=== PATIENT | female | born 1980 | race Caucasian/White ===

== ENCOUNTER 2016-08-25 18:16 | Emergency (ER) | payer OTHER ==
--- NOTE | 2016-08-25 18:33 | ED.PDOC ---
History of Present Illness - General Chief Complaint: Laceration Stated Complaint: laceration Time Seen by Provider: 08/25/16 18:25 Source: patient Exam Limitations: no limitations - History of Present Illness Initial Comments: Patient was cutting an onion and she cut the distal end of her left thumb. It bled quite a bit at first but has since stopped. She says it hurts a little and that it is also a "little numb" around the wound. She is not up to date on her tetanus. No other complaints. Timing/Duration: 1-3 hours Severity: mild Improving Factors: nothing Worsening Factors: nothing Associated Symptoms: denies symptoms Allergies/Adverse Reactions: Allergies NO KNOWN ALLERGY Allergy (Verified 08/25/16 18:34) Review of Systems - Review of Systems Constitutional: States: no symptoms reported EENTM: States: no symptoms reported Respiratory: States: no symptoms reported Cardiology: States: no symptoms reported Gastrointestinal/Abdominal: States: no symptoms reported Genitourinary: States: no symptoms reported Musculoskeletal: States: no symptoms reported Skin: States: see HPI Neurological: States: no symptoms reported Endocrine: States: no symptoms reported Hematologic/Lymphatic: States: no symptoms reported Family Medical History - Family History Mother Family History: Unknown Physical Exam - Physical Exam General Appearance: Alert Respiratory: lungs clear Cardiovascular/Chest: regular rate, rhythm Gastrointestinal/Abdominal: normal bowel sounds, non tender, soft Skin Exam: other - 1.5 cm transverse laceration on distal anterior first digit. Hemostatic. Wound edges have self-approximated. Progress - Progress Progress: 08/25/16 19:00 Wound cleaned and irrigated with normal saline. Steri-strips applied. Tetanus booster given. Departure - Departure Clinical Impression: Laceration Disposition: Discharge to Home or Self Care Condition: Good Departure Forms: ED Discharge - Pt. Copy, Patient Portal Self Enrollment Diet: resume usual diet Activity: increase activity as tolerated Additional Instructions: Change bandage once per day. Apply topical antibiotic to the wound site until healed. Return to the ER or the clinic if bleeding recurs or for pus, increasing pain or redness, or failure of wound to heal.
[2016-08-25] MEDS ORDERED: TETANUS,DIPHTHERIA,PERTUSSIS 1 EA SYG IM ONE (18:38)
[2016-08-25 19:16] VITALS: BP 136/79; TEMP 97.9; O2SAT 98
== END 2016-08-25 19:16 | disposition home or self-care (01) ==
LOC: ER 18:16
DX: S61.012A Laceration without foreign body of left thumb without damage to nail, initial encounter (principal); Z23 Encounter for immunization; W26.0XXA Contact with knife, initial encounter; Y93.G1 Activity, food preparation and clean up

== ENCOUNTER 2019-05-30 07:51 | Day surgery (SDC) | payer OTHER ==
[2019-05-30] MEDS ORDERED: ONDANSETRON INJ 4 MG/2 ML VIAL IV ONE (08:06)
[2019-05-30] MEDS ORDERED: MORPHINE SULFATE INJ 10 MG/ML VIAL IV ONE ×2 (08:06→10:13)
[2019-05-30] MEDS ORDERED: SODIUM CHLORIDE 0.9% 1000ML 1,000 ML IVS ONE (08:06)
[2019-05-30] MEDS ORDERED: SODIUM CHLORIDE 0.9% (FLUSH) 10 ML SYG IV PRN (08:07)
[2019-05-30] MEDS ORDERED: CEFEPIME 2 GM in SODIUM CHL 0.9% 50ML MIN-BAG+ 50 ML IVPB ONE (08:09)
--- NOTE | 2019-05-30 08:12 | ED.PDOC ---
History of Present Illness - General Chief Complaint: Abdominal Pain Stated Complaint: abdominal pain Time Seen by Provider: 05/30/19 07:59 Information Source: patient Exam Limitations: no limitations - History of Present Illness Initial Comments: 38 yo F who presents for abd pain. States sx started in her lower back two days ago, was seen at PCP, UA was neg, pain worsened today, is diffuse, severe, no radiation, constant. Denies associated sx. Denies cough, congestion, CP, SOB, n/v/d, urinary sx, weakness, numbness, constipation. Review of Systems - Review of Systems Constitutional: Denies: chills EENTM: Denies: blurred vision, double vision, ear pain, nose congestion, throat pain Respiratory: Denies: cough, short of breath Cardiology: Denies: chest pain, edema, palpitations, syncope Gastrointestinal/Abdominal: States: abdominal pain. Denies: constipation, diarrhea, nausea, vomiting Genitourinary: Denies: dysuria, frequency, hematuria Musculoskeletal: States: back pain. Denies: neck pain Skin: Denies: lesions, rash Neurological: Denies: headache, numbness, weakness Past Medical History (General) - Patient Medical History Hx Stroke: No Hx Asthma: No Hx Congestive Heart Failure: No Hx Diabetes: No - Vaccination History Hx Tetanus, Diphtheria Vaccination: No Hx Influenza Vaccination: Yes - 05/29/19 - Social History Hx Tobacco Use: Yes Hx Alcohol Use: No Hx Substance Use: No Hx Substance Use Treatment: No Hx Depression: No - Female History Patient is a Female of Child Bearing Age (10 -59 yrs old): Yes Patient : No Family Medical History - Family History Mother Family History: Unknown Physical Exam - Physical Exam General Appearance: Alert, No apparent distress, Well Developed, Well Nourished, Other - Appears in pain Eyes, Ears, Nose, Throat Exam: PERRL/EOMI, normal ENT inspection Neck: non-tender, full range of motion, supple Respiratory: chest non-tender, lungs clear, normal breath sounds, no respiratory distress, no accessory muscle use Cardiovascular/Chest: normal peripheral pulses, no edema, no gallop, no JVD, no murmur, tachycardia Peripheral Pulses: No deficit Gastrointestinal/Abdominal: soft, no organomegaly, no pulsatile mass, guarding, tenderness, other - No distention Back Exam: normal inspection, no CVA tenderness, no vertebral tenderness Extremity: normal range of motion, non-tender, normal inspection, no pedal edema, no calf tenderness, normal capillary refill Neurologic: no motor/sensory deficits, alert Skin Exam: normal color, warm/dry Progress - Progress Progress: Sepsis activated as pt had two SIRS criteria with concern for infection. Pt found to have acute cholecystitis, suspect localized infection, lactate wnl, pt still in pain despite 4mg IV morphine x2 doses, fentanyl ordered. Discussed with Dr. Hong, surgery, will consult and take pt to the OR, requests admission for hospitalist. Discussed with Joey Kwong, midlevel for hospitalist, accepts for admission. Haley Red MD Emergency Physician Billing #[id number] - Results/Orders Results/Orders: Laboratory Results - last 24 hr 05/30/19 05/30/19 05/30/19 08:20 08:22 08:22 WBC 13.8 H RBC 4.59 Hgb 14.2 Hct 42.2 MCV 92.1 MCH 30.9 MCHC 33.6 RDW 12.8 Plt Count 268 MPV 7.3 L Absolute Neuts (auto) 12.50 H Absolute Lymphs (auto) 0.60 L Absolute Monos (auto) 0.70 Absolute Eos (auto) 0.00 Absolute Basos (auto) 0.00 Neutrophils % 90.4 H Lymphocytes % 4.7 L Monocytes % 4.7 Eosinophils % 0.0 L Basophils % 0.2 Sodium 136 Potassium 3.4 L Chloride 101 Carbon Dioxide 27 Anion Gap 11.4 L BUN 10 Creatinine 0.72 BUN/Creatinine Ratio 13.9 Random Glucose 124 H Serum Osmolality 272.4 L Lactic Acid Calcium 9.5 Total Bilirubin 0.9 AST 19 ALT 15 Alkaline Phosphatase 76 Serum Total Protein 7.9 Albumin 4.2 Globulin 3.7 H Albumin/Globulin Ratio 1.1 Lipase Urine Color Yellow Urine Appearance Clear Urine pH 7.5 Ur Specific Lapel 1.015 Urine Protein Negative Urine Glucose (UA) Negative Urine Ketones Negative Urine Blood Trace-intact H Urine Nitrite Negative Urine Bilirubin Negative Urine Urobilinogen 0.2 Ur Leukocyte Esterase Small H Urine RBC 1-3 Urine WBC 0-1 Ur Epithelial Cells 1-3 Amorphous Sediment Trace Urine Bacteria Rare Urine HCG, Qual 05/30/19 05/30/19 05/30/19 08:22 08:56 10:00 WBC RBC Hgb Hct MCV MCH MCHC RDW Plt Count MPV Absolute Neuts (auto) Absolute Lymphs (auto) Absolute Monos (auto) Absolute Eos (auto) Absolute Basos (auto) Neutrophils % Lymphocytes % Monocytes % Eosinophils % Basophils % Sodium Potassium Chloride Carbon Dioxide Anion Gap BUN Creatinine BUN/Creatinine Ratio Random Glucose Serum Osmolality Lactic Acid 0.9 Calcium Total Bilirubin AST ALT Alkaline Phosphatase Serum Total Protein Albumin Globulin Albumin/Globulin Ratio Lipase 26 Urine Color Urine Appearance Urine pH Ur Specific Lapel Urine Protein Urine Glucose (UA) Urine Ketones Urine Blood Urine Nitrite Urine Bilirubin Urine Urobilinogen Ur Leukocyte Esterase Urine RBC Urine WBC Ur Epithelial Cells Amorphous Sediment Urine Bacteria Urine HCG, Qual Negative CT abd/pelvis: EXAM DESCRIPTION: Abdomen/Pelvis w/Contrast CLINICAL HISTORY: 38 years Female, pain TECHNIQUE: This exam was performed according to our departmental dose-opti mization program, which includes automated exposure control, adjustment of the mA and/or kV according to patient size and/or use of iterative reconstruction technique. COMPARISON: None at time of initial interpretation. FINDINGS: Visualized lung bases are grossly unremarkable. The liver measures at least 20 cm. No suspicious hepatic lesion. Mild intrahepatic and extrahepatic biliary dilatation. The portal vein is patent. The gallbladder is distended with gallbladder wall thickening and pericholecystic fluid. The spleen, pancreas and adrenal glands are unremarkable. Normal kidneys. No hydronephrosis. No urolithiasis. Unremarkable bladder. No adnexal mass. Scattered colonic diverticula without focal inflammatory change. No evidence of bowel obstruction. No findings to suggest appendicitis. No adenopathy. No focal fluid collection. No free air. Normal caliber abdominal aorta. No acute or suspicious osseous abnormality. IMPRESSION: Acute cholecystitis. Electronically signed by: Jamel Hardin MD 05/30/2019 9:50 AM [employer] TECHNOLOGIST Vital Signs - 24 hr 05/30/19 05/30/19 05/30/19 08:00 09:03 10:06 Temperature 100.2 F H Pulse Rate [ 121 H 80 86 Left Brachial] Respiratory 16 16 20 Rate Blood Pressure 136/94 122/70 127/84 [Left Arm] O2 Sat by Pulse 99 95 98 Oximetry Departure - Departure Clinical Impression: Acute cholecystitis Time of Disposition: 11:14 Disposition: Admit Patient Condition: Fair Home Medications: Ambulatory Orders Modafinil 200 mg PO BID 05/30/19 Norethin Acet & Estrad-Fe [Taytulla 1-20 mg-Mcg(24)] 1 cap PO DAILY 05/30/19
[2019-05-30] MEDS ORDERED: SODIUM CHL 0.9% 50ML MIN-BAG+ 50 ML IVPB ONE (08:23)
[2019-05-30] MEDS ORDERED: CEFEPIME 2 GM VIAL ONE (08:23)
--- NOTE | 2019-05-30 09:51 | CT ---
EXAM DESCRIPTION: Abdomen/Pelvis w/Contrast CLINICAL HISTORY: 38 years Female, pain TECHNIQUE: This exam was performed according to our departmental dose-optimization program, which includes automated exposure control, adjustment of the mA and/or kV according to patient size and/or use of iterative reconstruction technique. COMPARISON: None at time of initial interpretation. FINDINGS: Visualized lung bases are grossly unremarkable. The liver measures at least 20 cm. No suspicious hepatic lesion. Mild intrahepatic and extrahepatic biliary dilatation. The portal vein is patent. The gallbladder is distended with gallbladder wall thickening and pericholecystic fluid. The spleen, pancreas and adrenal glands are unremarkable. Normal kidneys. No hydronephrosis. No urolithiasis. Unremarkable bladder. No adnexal mass. Scattered colonic diverticula without focal inflammatory change. No evidence of bowel obstruction. No findings to suggest appendicitis. No adenopathy. No focal fluid collection. No free air. Normal caliber abdominal aorta. No acute or suspicious osseous abnormality. IMPRESSION: Acute cholecystitis. Electronically signed by: Jamel Hardin MD 05/30/2019 9:50 AM [facility]
[2019-05-30] MEDS ORDERED: fentaNYL CITRATE INJ 50 MCG/ML AMP IV ONE (11:07)
[2019-05-30] MEDS ORDERED: PROPOFOL 200 MG/20 ML VIAL IV ONE (12:00)
[2019-05-30] MEDS ORDERED: MAGNESIUM SULFATE INJ 1 GM/2 ML VIAL IVPB ONE (12:00)
[2019-05-30] MEDS ORDERED: DEXAMETHASONE INJ 10 MG/ML VIAL IV ONE (12:00)
[2019-05-30] MEDS ORDERED: raNITIdine HCL INJ 25 MG/ML VIAL IV ONE (12:00)
[2019-05-30] MEDS ORDERED: LIDOCAINE 1% 10 ML VIAL INJ ONE (12:00)
[2019-05-30] MEDS ORDERED: KETOROLAC TROMETHAMINE INJ 30 MG/ML VIAL IV ONE (12:00)
[2019-05-30] MEDS ORDERED: SODIUM CHLORIDE 0.9% 50 ML VIAL INJ ONE (12:00)
[2019-05-30] MEDS ORDERED: KETAMINE HCL 100 MG/ML VIAL ONE (12:33)
[2019-05-30] MEDS ORDERED: ROCURONIUM BROMIDE 10 MG/ML VIAL ONE (12:33)
[2019-05-30] MEDS ORDERED: MIDAZOLAM INJ 2 MG/2 ML VIAL ONE (12:33)
[2019-05-30] MEDS ORDERED: HYDROmorphone HCL INJ 2 MG/ML VIAL ONE (12:33)
[2019-05-30] MEDS ORDERED: BUPIVACAINE 0.25% W/EPI 50 ML VIAL INJ ONE (12:40)
[2019-05-30] MEDS ORDERED: HEPARIN SODIUM (PORCINE) 10,000 UNITS/ML VIAL ONE (12:41)
[2019-05-30] MEDS ORDERED: LACTATED RINGERS 1,000 ML ONE (12:47)
[2019-05-30] MEDS ORDERED: IOPROMIDE INJ 300 MG/ML 50 ML INJ ONE (12:59)
[2019-05-30] MEDS ORDERED: HEPARIN SODIUM (PORCINE) 10,000 UNITS/ML VIAL IRRIG ONE (12:59)
[2019-05-30] MEDS ORDERED: BUPIVACAINE 0.25% W/EPI 50 ML VIAL SUBCU ONE (12:59)
[2019-05-30] MEDS ORDERED: SUGAMMADEX SODIUM 200 MG/2 ML VIAL IV ONE (13:50)
[2019-05-30] MEDS ORDERED: ELECTROLYTE-A 1,000 ML IVS ONE (14:01)
--- NOTE | 2019-05-30 15:06 | RAD ---
Intraoperative views from a cholangiogram. Indication: IOL Impression: Fluoroscopic image/s were acquired by the referring physician intraoperatively. Please refer to surgical report for specific details. Fluoroscopy time 11.6 seconds. Images submitted 3 Electronically signed by: Benny Bowling MD 05/30/2019 3:04 PM ROD FILLER
[2019-05-30] MEDS ORDERED: LACTATED RINGERS 1,000 ML IVS ONE (15:14)
[2019-05-30 16:42] VITALS: BP 106/67; TEMP 96.8; O2SAT 95
--- NOTE | 2019-05-31 10:34 | OP ---
DATE OF PROCEDURE: 05/30/19 PREOPERATIVE DIAGNOSIS: 1. Acute cholecystitis. 2. Right upper quadrant pain. POSTOPERATIVE DIAGNOSIS: 1. Acute cholecystitis. 2. Right upper quadrant pain. 3. Cholelithiasis. PROCEDURE: 1. Laparoscopic cholecystectomy with intraoperative cholangiography using fluoroscopy. SURGEON: Jose Hong MD. CAR RENTAL MANAGER: None. ANESTHESIA: Local infiltration of 0.25% Marcaine with epinephrine and general endotracheal anesthesia. INDICATION: The patient is a 39-year-old female who after eating [place] food Wednesday evening developed discomfort. The pain worsened. She states it involves her whole abdomen. She denies previous episodes of like illness, denies fatty food intolerance. She has a history of jaundice, but no other GI symptoms. CT scan in the Emergency Room revealed a dilated gallbladder with thickened gray and pericholecystic fluid, but no stones were identified. There was a question of mildly dilated biliary tree, but normal liver functions and white count 13,000. FINDINGS: The gallbladder was distended, thickened, quite large. There were multiple large stones in the neck of the gallbladder. Intraoperative cholangiography revealed free flow into the duodenum with no filling defects or strictures noted. DESCRIPTION OF PROCEDURE: After adequate general endotracheal anesthesia was obtained, the patient was prepped and draped in the usual sterile manner. Surgical time-out was taken. The patient had received Maxipime in the Emergency Room. The infraumbilical incision was made, first with local infiltration of anesthesia, and then with a sharp knife. Dissection was carried down through the subcutaneous tissue to the midline fascia. Traction sutures were placed on either side of the midline. A small incision was made in the midline fascia and the peritoneum was opened bluntly. Jose trocar was introduced under direct vision into the abdominal cavity and fixed in place with the 20 mL balloon. CO2 was then insufflated until a pressure of 12 mmHg was reached and the abdomen was tympanitic in all four quadrants. When this was done, the laparoscope was introduced. The abdomen was inspected with the previously noted findings. The patient was then placed in reverse Trendelenburg position and turned to the left side. The upper abdominal ports were placed under direct vision. The adhesions to the gallbladder from the omentum were taken down using blunt dissection with a small amount of oozing. The gallbladder was then grasped, retracted anteriorly and laterally. The neck of the gallbladder was grasped and retracted laterally. The triangle of Calot was then explored. The cystic duct was identified and isolated. The cystic duct was hemoclipped once proximally. A small incision was made in the cystic duct. The cholangiogram catheter was introduced through a separate stab wound in the right upper quadrant, introduced into the cystic duct and clipped in place. Cholangiograms were then taken using fluoroscopy which revealed free flow into the duodenum with no filling defects or strictures noted. When this was done, the cystic duct catheter was removed. The cystic duct was hemoclipped three times distally and divided between the hemoclips. The cystic artery was identified and clipped proximally and divided. The gallbladder was then dissected free from the gallbladder bed of the liver using electrocautery. There was a tiny amount of oozing which was controlled without cautery. The gallbladder was quite large and barely fit in an EndoCatch bag and it was removed from the infraumbilical port site after aspiration of 60 mL of bile and then opening of the gallbladder, the rest of the bile and the gallstones. When this was done, the specimen was sent for pathological evaluation. The port was irrigated with saline and the port was replaced. At this point, the subhepatic space and subphrenic space were irrigated copiously with saline. In the subphrenic space, there was a small vessel of bleeding which was clipped just contiguous with the cystic duct. When this was controlled, again the subhepatic space and subphrenic space were irrigated with saline. Hemostasis was noted to be adequate. At this point, the upper abdominal ports were removed under direct vision and adequate hemostasis was noted. At this point, the CO2, the laparoscope and the infraumbilical port were removed. The infraumbilical port site fascia was approximated with a single [id number] suture of 0 Vicryl. Subcutaneous tissue was irrigated with saline. Skin edges were approximated with 4-0 Vicryl subcuticular sutures, benzoin and Steri-Strips. Sterile dressings were applied. The patient was awakened and taken to the Recovery Room in good and stable condition. Estimated blood loss was less than 50 to 75 mL. All sponge, needle and instrument counts were correct. #[id number] [facility]
== END 2019-05-30 16:47 | disposition home or self-care (01) ==
LOC: ER 07:51 → AMB 07:59 → UNDOADMOB 11:39 → MS 11:39 → ER 13:04 → UNDODISOB 16:47 → AMB 16:47
PROVIDERS: ATTEND Surgery
DX: K80.12 Calculus of gallbladder with acute and chronic cholecystitis without obstruction (principal); R59.0 Localized enlarged lymph nodes; G47.419 Narcolepsy without cataplexy; Z79.3 Long term (current) use of hormonal contraceptives; Z87.891 Personal history of nicotine dependence; Z98.891 History of uterine scar from previous surgery
CPT/HCPCS: 00790; 36415; 47563; 74177; 76000; 80053; 81001; 81025; 83605; 83690; 85025; 87040; 87086; 96365; 96375; 96376; 99285; A4216; J0692; J1100; J1170; J1644; J1885; J2250; J2270; J2405; J2780; J3010; J3475; J3490; J7030; J7050; J7120

== ENCOUNTER → 2019-08-24 | Outpatient (CLI) | payer OTHER | DX: G35 Multiple sclerosis (principal); M50.322 Other cervical disc degeneration at C5-C6 level; M50.323 Other cervical disc degeneration at C6-C7 level; M50.33 Other cervical disc degeneration, cervicothoracic region; M51.34 Other intervertebral disc degeneration, thoracic region; M51.84 Other intervertebral disc disorders, thoracic region; E04.1 Nontoxic single thyroid nodule; Z80.3 Family history of malignant neoplasm of breast ==

== ENCOUNTER 2019-09-04 11:27 | Emergency (ER) | payer OTHER ==
[2019-09-04 11:50] VITALS: TEMP 98.2
[2019-09-04] MEDS ORDERED: HYDROcodone 5MG/APAP 325MG 1 EA TAB PO ONE (12:08)
--- NOTE | 2019-09-04 12:16 | CT ---
EXAM DESCRIPTION: Head CLINICAL HISTORY: fall with pain COMPARISON: MRI of the brain dated 08/21/2019. TECHNIQUE: Contiguous axial images through the head were obtained without intravenous contrast administration. Sagittal and coronal reconstructions were reviewed. FINDINGS: No evidence of acute major vascular territorial infarct or intraparenchymal hemorrhage. No intra-axial or extra-axial fluid collections are identified. The ventricles and cisterns appear normal in caliber. The sella and suprasellar regions appear normal. The structures of the posterior fossa are intact. The globes are intact bilaterally. The visualized paranasal sinuses and mastoid air cells are well-aerated. Posterior left parietal scalp hematoma is noted. The underlying bone demonstrates no gross abnormality. IMPRESSION: Posterior left parietal scalp hematoma is noted. No CT evidence of acute intracranial process. This exam was performed according to our departmental dose-optimization program, which includes automated exposure control, adjustment of the mA and/or kV according to patient size and/or use of iterative reconstruction technique. Electronically signed by: Louisa Hinson MD 09/04/2019 12:14 PM CDT
--- NOTE | 2019-09-04 12:18 | RAD ---
EXAM DESCRIPTION: Cervical Spine, 2-3 Views CLINICAL HISTORY: 38 years Female, left tmj pain after fall COMPARISON: MRI cervical spine 08/24/2019 TECHNIQUE: 3 view radiographs of the cervical spine. IMPRESSION: Intact odontoid on open-mouth view. Normal anatomic alignment of the lateral masses of C1. C1 through C7 vertebrae are visualized. No acute displaced fracture or compression deformity. Mild reversal normal cervical lordosis as similar demonstrated on MRI cervical spine, centered at C5. Normal AP alignment. No lateral curvature or lateral translation. No significant uncovertebral or facet arthrosis. Intervertebral disc spaces maintained in height. No prevertebral soft tissue thickening. Visualized lungs unremarkable. Electronically signed by: Damian Carrillo MD 09/04/2019 12:16 PM CDT
--- NOTE | 2019-09-04 12:25 | RAD ---
EXAM DESCRIPTION: Mandible: CR/DR/XR. CLINICAL HISTORY: 38 years Female, left tmj pain after fall COMPARISON: US of the cervical spine and CT scan of the head on the same visit. TECHNIQUE: 3 views AP facial bones and bilateral lateral mandibles. FINDINGS: Metal device or device containing metal strip attached to the anterior and nostrils bilaterally abutting the outer gray of the maxillary sinuses. Bilateral mandible seen along with bilateral TMJs. No mandibular fracture. No TMJ dislocation. Mandibular condyle in the bilateral temporal bone fossa is unremarkable on the CT scan. Normal bone density. IMPRESSION: Mandible is intact with no TMJ dislocation bilaterally. Electronically signed by: Peter Cisneros MD 09/04/2019 12:23 PM CDT
--- NOTE | 2019-09-04 12:36 | ED.PDOC ---
History of Present Illness - General Chief Complaint: Syncope/Near Syncope Stated Complaint: "passed out this morning and fell and hit head" Time Seen by Provider: 09/04/19 11:37 Source: patient Exam Limitations: no limitations - History of Present Illness Initial Comments: The patient is a 38-year-old female presented emergency room after having fallen and hit her head. She has a fairly large hematoma over the occipital area. No laceration. She also has a small bruise to the point of the chin. She is opening and closing her jaw okay but does have some pain in the left temporomandibular area. The patient apparently has a history of some form of narcolepsy that is currently being worked up by her primary care doctor and neurology. This appears to have been caused by an episode. The patient is feeling okay currently with the exception of a headache. No neck pain. No acute neurological changes currently. She denies taking any blood thinners. The patient is pleasant and cooperative. No other injuries are obvious. She is ambulatory in presentation. Timing/Duration: momentarily Severity: moderate Improving Factors: nothing Worsening Factors: nothing Associated Symptoms: headaches Allergies/Adverse Reactions: Allergies NO KNOWN ALLERGY Allergy (Verified 09/04/19 11:45) Home Medications: Ambulatory Orders Modafinil 200 mg PO BID 05/30/19 Norethin Acet & Estrad-Fe [Taytulla 1-20 mg-Mcg(24)] 1 cap PO DAILY 05/30/19 Review of Systems - Review of Systems Constitutional: States: no symptoms reported EENTM: States: no symptoms reported Respiratory: States: no symptoms reported Cardiology: States: no symptoms reported Gastrointestinal/Abdominal: States: no symptoms reported Genitourinary: States: no symptoms reported Musculoskeletal: States: see HPI Skin: States: see HPI Neurological: States: see HPI Endocrine: States: no symptoms reported All other Systems: No Change from Baseline Past Medical History (General) - Patient Medical History Hx Stroke: No Hx Asthma: No Hx Congestive Heart Failure: No Hx Diabetes: No Surgical History: cholecystectomy - Vaccination History Hx Tetanus, Diphtheria Vaccination: No Hx Influenza Vaccination: Yes - 05/29/19 - Social History Hx Tobacco Use: Yes Hx Alcohol Use: No Hx Substance Use: No Hx Substance Use Treatment: No Hx Depression: No - Activities of Daily Living Hospice Agency (if applicable):: None - Female History Patient : No - Triage Comment ED Triage Comment: pt voices hx of narcolepsy, passed out this morning, fell and hit head on floor and was found by son. Family Medical History - Family History Mother Family History: Unknown Physical Exam - Physical Exam General Appearance: Alert, Comfortable, No apparent distress Eye Exam: bilateral normal Ears, Nose, Throat: hearing grossly normal, normal ENT inspection, normal pharynx, other - Tenderness to palpation over the left temporomandibular joint. No deformity. No crepitus. Normal occlusion of the jaw. Neck: non-tender, full range of motion, supple, normal inspection Respiratory: lungs clear, normal breath sounds, no respiratory distress, no accessory muscle use Cardiovascular/Chest: normal peripheral pulses, regular rate, rhythm, no edema Peripheral Pulses: radial,right: 2+, radial,left: 2+ Rectal Exam: deferred Back Exam: no CVA tenderness, no vertebral tenderness Extremity: normal range of motion, non-tender, normal inspection, no pedal edema, normal capillary refill Neurologic: pad tufter II-XII nml as tested, no motor/sensory deficits, alert, normal mood/affect, oriented x 3 Skin Exam: normal color - With the exception of the bruises as above Comments: Vital Signs - 24 hr 09/04/19 09/04/19 11:42 12:15 Temperature 98.2 F Pulse Rate [ 101 H 82 brachial] Respiratory 20 20 Rate Blood Pressure 134/112 117/83 [Left Arm] O2 Sat by Pulse 100 100 Oximetry Progress - Progress Progress: 09/04/19 12:37 The patient is a 38-year-old presenting secondary to blunt head trauma. It is possible the patient may have a mild concussion however symptoms are not definitively evident at this time. She does have a headache. She did receive a dose of hydrocodone. CT scan of the head shows the scalp hematoma but no evidence of any acute intracranial pathology. X-ray of the cervical spine and mandible show no acute pathology. She did likely strain the left TMJ. She will likely have some soreness with this over the next 6 weeks. Cosz-ris-sgjudgk anti-inflammatory such as Motrin or Aleve may be beneficial with this. TMJ strain can also increase the frequency of tension type headaches. She does need to do intermittent range of motion exercises with her jaw as well to reduce spasm. She does need to keep follow-up with her primary care doctor and her neurologist to continue work-up of her neurological issues. Keep well-hydrated. ER warnings are given for any acute worsening. ericka conner [id number] - Results/Orders Results/Orders: CT scan of the head shows the parieto-occipital hematoma. No evidence of acute intracranial pathology otherwise. X-ray of the cervical spine shows no acute pathology. X-ray of the mandible shows no acute pathology. Departure - Departure Clinical Impression: Sprain and strain of temporomandibular joint Scalp hematoma Qualifiers: Encounter type: initial encounter Qualified Code(s): S00.03XA - Contusion of scalp, initial encounter Fall at home Qualifiers: Encounter type: initial encounter Qualified Code(s): W19.XXXA - Unspecified fall, initial encounter; Y92.009 - Unspecified place in unspecified non- institutional (private) residence as the place of occurrence of the external cause Disposition: Discharge to Home or Self Care Condition: Fair Departure Forms: ED Discharge - Pt. Copy, Patient Portal Self Enrollment Diet: regular diet Activity: increase activity as tolerated Referrals: Isrrael Linares MD [Primary Care Provider] - 1-2 Weeks Home Medications: Ambulatory Orders Modafinil 200 mg PO BID 05/30/19 Norethin Acet & Estrad-Fe [Taytulla 1-20 mg-Mcg(24)] 1 cap PO DAILY 05/30/19 Additional Instructions: The patient is a 38-year-old presenting secondary to blunt head trauma. It is possible the patient may have a mild concussion however symptoms are not definitively evident at this time. She does have a headache. She did receive a dose of hydrocodone. CT scan of the head shows the scalp hematoma but no evidence of any acute intracranial pathology. X-ray of the cervical spine and mandible show no acute pathology. She did likely strain the left TMJ. She will likely have some soreness with this over the next 6 weeks. [id number] anti-inflammatory such as Motrin or Aleve may be beneficial with this. TMJ strain can also increase the frequency of tension type headaches. She does need to do intermittent range of motion exercises with her jaw as well to reduce spasm. She does need to keep follow-up with her primary care doctor and her neurologist to continue work-up of her neurological issues. Keep well-hydrated. ER warnings are given for any acute worsening.
[2019-09-04 13:00] VITALS: BP 128/89; O2SAT 98
== END 2019-09-04 13:00 | disposition home or self-care (01) ==
LOC: ER 11:27
DX: S00.03XA Contusion of scalp, initial encounter (principal); S03.42XA Sprain of jaw, left side, initial encounter; S00.83XA Contusion of other part of head, initial encounter; R55 Syncope and collapse; R51 Headache; G47.419 Narcolepsy without cataplexy; W18.30XA Fall on same level, unspecified, initial encounter; Z79.899 Other long term (current) drug therapy; Z87.891 Personal history of nicotine dependence; Y92.9 Unspecified place or not applicable

== ENCOUNTER → 2020-04-23 | Outpatient (CLI) | payer OTHER | LOC: GMAM 14:48 | PROVIDERS: ATTEND Family Medicine | DX: U07.1 COVID-19 (principal); R71.8 Other abnormality of red blood cells; R09.02 Hypoxemia ==